=== PATIENT | male | born 1940 | race African-American/Black ===

== ENCOUNTER → 2016-10-26 | Outpatient (CLI) | payer MEDICARE, OTHER | END | disposition home or self-care (01) | LOC: PCVCCLINIC 11:30 | PROVIDERS: ATTEND Internal Medicine Cardiovascular Disease | DX: I65.23 Occlusion and stenosis of bilateral carotid arteries (principal); R09.89 Other specified symptoms and signs involving the circulatory and respiratory systems; I25.10 Atherosclerotic heart disease of native coronary artery without angina pectoris; R06.00 Dyspnea, unspecified; E78.5 Hyperlipidemia, unspecified; I25.5 Ischemic cardiomyopathy; I10 Essential (primary) hypertension; Z95.5 Presence of coronary angioplasty implant and graft | CPT/HCPCS: 80061; 93005; 93306; 93880; G0463 ==

== ENCOUNTER → 2016-11-02 | Outpatient (CLI) | payer MEDICARE, OTHER ==
[~2016-11-02] MED LIST: REGADENOSON 0.4 MG/5 ML DISP.SYRIN. IV ONE
== END | disposition home or self-care (01) ==
LOC: PCVCIMAG 09:48
PROVIDERS: ATTEND Internal Medicine Cardiovascular Disease
DX: I25.10 Atherosclerotic heart disease of native coronary artery without angina pectoris (principal); E78.5 Hyperlipidemia, unspecified
CPT/HCPCS: 78452; 93017; A9500; J2785

== ENCOUNTER → 2018-01-02 | Outpatient (CLI) | payer MEDICARE, OTHER | END | disposition home or self-care (01) | LOC: PCVCCLINIC 11:19 | DX: I25.10 Atherosclerotic heart disease of native coronary artery without angina pectoris (principal); I10 Essential (primary) hypertension; E78.00 Pure hypercholesterolemia, unspecified; I25.5 Ischemic cardiomyopathy; Z78.9 Other specified health status | CPT/HCPCS: 80061; 93005; G0463 ==

== ENCOUNTER → 2018-07-10 | Outpatient (CLI) | payer MEDICARE, OTHER ==
--- NOTE | 2018-07-10 14:55 | PCVCIMAG ---
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, stent RCA 2D Dimensions IVSd: 8.29 (7-11mm)LVOT Diam: 21.72 (18-24mm) LVDd: 60.39 mm PWd: 6.38 (7-11mm)Ascending Ao: 24.96 (22-36mm) LVDs: 46.28 (25-40mm) Left Atrium: 36.04 (27-40mm) Aortic Root: 24.05 mm LV Single Plane 4CH: 38.33 % LV Single Plane 2CH: 22.70 % Biplane EF: 30.0 % Volumes Left Atrial Volume (Systole) Single Plane 4CH: 50.60 mLSingle Plane 2CH: 62.99 mL Biplane LA Volume: 57.00 mLLA ESV Index: 27.00 mL/m2 LV Strain GL Strain(%): 0.00 Aortic Valve AoV Peak Gerard.: 1.02 m/s AO Peak Gr.: 4.13 mmHgLVOT Max P.37 mmHg LVOT Max V: 0.58 m/s ZARIA Vmax: 2.13 cm2 Mitral Valve E/A Ratio: 0.6 MV Decel. Time: 281.80 ms MV E Max Gerard.: 0.39 m/s MV A Gerard.: 0.67 m/s IVRT: 92.27 ms TDI E/Lateral E': 9.75E/Medial E': 7.80 Medial E' Gerard.: 0.05 m/s Lateral E' Gerard.: 0.04 m/s Pulmonary Valve PV Peak Gerard.: 0.83 m/sPV Peak Gr.: 2.73 mmHg Tricuspid Valve TV Vmax: 0.55 m/s Left Ventricle Left ventricle is moderately dilated. There is global hypokinesis of the left ventricle.Mid-apical anterior,septal,inferior akinesis from old DE. There is normal left ventricular wall thickness. Left ventricular systolic function is moderate to severely decreased. LVEF is 30%. Grade I - abnormal relaxation pattern. Right Ventricle The right ventricle is normal size. The right ventricular systolic function is normal. Atria The left atrium size is normal. The right atrium size is normal. Aortic Valve Aortic valve is trileaflet. No aortic regurgitation is present. There is no aortic valvular stenosis. Mitral Valve The mitral valve is normal in structure. There is no mitral valve regurgitation noted. No evidence of mitral valve stenosis. Tricuspid Valve The tricuspid valve is normal in structure. Trace tricuspid regurgitation. Trace tricuspid regurgitation. Pulmonic Valve The pulmonary valve is normal in structure. Trace pulmonic regurgitation. Great Vessels The aortic root is normal in size. The ascending aorta is normal in size. Aortic arch is normal in caliber. IVC is normal in size and collapses >50% with inspiration. Pericardium There is no pericardial effusion. There is no pleural effusion. <Conclusion> Left ventricle is moderately dilated. Left ventricular systolic function is moderate to severely decreased. There is global hypokinesis of the left ventricle.Mid-apical anterior, septal,inferior akinesis from old DE. LVEF is 30%. Grade I - abnormal relaxation pattern. The right ventricle is normal size. The left atrium size is normal. Aortic valve is trileaflet. There is no mitral valve regurgitation noted. Trace tricuspid regurgitation. Trace tricuspid regurgitation. The aortic root is normal in size. There is no pericardial effusion.
== END | disposition home or self-care (01) ==
LOC: PCVCIMAG 10:35
PROVIDERS: ATTEND Internal Medicine Cardiovascular Disease
DX: I25.10 Atherosclerotic heart disease of native coronary artery without angina pectoris (principal); I10 Essential (primary) hypertension; I25.5 Ischemic cardiomyopathy; I25.2 Old myocardial infarction; E78.00 Pure hypercholesterolemia, unspecified; Z78.9 Other specified health status
CPT/HCPCS: 93005; 93306; G0463

== ENCOUNTER → 2018-11-12 | Outpatient (CLI) | payer MEDICARE, OTHER ==
--- NOTE | 2018-11-12 17:46 | PCVCIMAG ---
APPROVED REPORT Imaging Protocol: Rest Tc-99m/Stress Tc-99m 1 day Study performed: 11/12/2018 09:50:02 Indication: CAD, ICM Patient Location: Out-Patient Stress Nurse: Yoly Kenney RN, Disha Hough RN [place] Tech:Nichole Berg [facility] Ht: 5 ft 8 in Wt: 208 lbs BSA: 2.08 m2 HR: 81 bpm BP: 169/88 mmHg BMI: 31.6 Rhythm: Normal Sinus Rhythm, nonspecific T wave abnormalities Medical History Medical History: Hyperlipidemia, HTN, [place], CVD Medications: Cardura, Toprol XL, Benicar Allergies: Flomax, Norman Inhibitors, Statins (intoelrant) Cardiac Risk Factors: Age Previous Cardiac Procedures: Multiple PCI's - LAD Pretest Chest Pain Characteristics: No chest pain Exercise History: Sedentary Meds Held (24 hrs): Metoprolol Resting Data Rest SPECT myocardial perfusion imaging was performed in supine position 45 minutes following the intravenous injection of 10.9 mCi of Tc-99m Sestamibi. Time of rest injection: 0900 Administration Route: IV Administration Site: Right Hand Pharmacologic Stress Pharmacologic stress test was performed by injecting Regadenoson 0.4 mg IV push over 10-15 seconds immediately followed by the intravenous injection of 34.1 mCi of Tc-99m Sestamibi. Time of stress injection: 1030 Date: 11/12/2018 Administration Route: IV Administration Site: Right Hand Gated Stress SPECT was performed 45 minutes after stress injection. The images were gated to evaluate regional wall motion and calculate left ventricular ejection fraction. Stress Test Details Stress Test: Pharmacologic stress testing performed using 0.4 mg of regadenoson per 5 mL given IV over 10 seconds. Reason for pharmacologic stress test: physical limitation. HRMax Heart Rate (APMHR): 143 bpm Resting HR: 81 bpmTarget HR (85% APMHR): 121 bpm Max HR Achieved: 118 bpm % of APMHR: 82 Recovery HR: 105 bpm BP Resting BP: 169/88 mmHg Max BP: 163/89 mmHg Recovery BP: 149/78 mmHg ECG Resting ECG: Normal Sinus Rhythm, nonspecific T wave abnormalities Stress ECG: Sinus Tachycardia, nonspecific T wave abnormalities Arrhythmia: PVC's Recovery ECG: Sinus Tachycardia, nonspecific T wave abnormalities Clinical Reason for Termination: Completed protocol Stress Symptoms: Dyspnea Exercise duration: 0 min 55 sec Symptoms resolved with caffeine. Stress ECG Conclusion ECG: Non-ischemic Study Quality Study: Good Study Data Post stress, the left ventricular ejection was 32%.. SSS: 36 SRS: 30 SDS: 6 TID = 0.99. 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 Old complete infarct involving the inferoseptal wall of the left ventricle with minimal shady-infarct ischemia. Old complete infarct involving the anteroseptal wall of the left ventricle with no shady-infarct ischemia. Wall Motion Moderately decreased left ventricular systolic function. 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 Old complete infarct involving the inferoseptal wall of the left ventricle with minimal shady-infarct ischemia. Old complete infarct involving the anteroseptal wall of the left ventricle with no shady-infarct ischemia. No change since prior study dated October 2016. Interpreted by: Nic Stovall MD Electronically Approved: 11/12/2018 17:12:56 <Conclusion> ECG: Non-ischemic
== END | disposition home or self-care (01) ==
LOC: PCVCIMAG 08:41
PROVIDERS: ATTEND Internal Medicine Cardiovascular Disease
DX: I25.10 Atherosclerotic heart disease of native coronary artery without angina pectoris (principal); I25.5 Ischemic cardiomyopathy
CPT/HCPCS: 78452; 93017; A9500